=== PATIENT | male | born 1960 | race Two or more races ===

== ENCOUNTER 2018-05-31 18:46 | Emergency (ER) | payer OTHER, SELFPAY ==
[~2018-05-31] VITALS: Ht 172.7 cm; Wt 84.0 kg
[2018-05-31 22:26] VITALS: BP 154/88
== END 2018-05-31 22:27 | disposition home or self-care (01) ==
LOC: ER 18:46
DX: H10.32 Unspecified acute conjunctivitis, left eye (principal); Z88.0 Allergy status to penicillin; Z98.890 Other specified postprocedural states
CPT/HCPCS: 99283